=== PATIENT | female | born 1930 | race Caucasian/White ===

== ENCOUNTER 2018-02-14 11:44 | Emergency (ER) | payer MEDICARE ==
[~2018-02-14] VITALS: Ht 170.2 cm; Wt 72.0 kg
[~2018-02-14 11:44] MED LIST: ASPI81TA52 PO; DILT240C90 PO; LISI-232 PO; WARF3TAB PO
[2018-02-14 12:01] VITALS: BP 146/88
[2018-02-14] MEDS ORDERED: ACET-3068 PO (13:30)
== END 2018-02-14 14:12 | disposition home or self-care (01) ==
LOC: ER 11:45
DX: S80.02XA Contusion of left knee, initial encounter (principal); S80.01XA Contusion of right knee, initial encounter; I48.91 Unspecified atrial fibrillation; I10 Essential (primary) hypertension; Z98.890 Other specified postprocedural states; Z79.82 Long term (current) use of aspirin; Z79.01 Long term (current) use of anticoagulants; Z79.899 Other long term (current) drug therapy; Z91.018 Allergy to other foods; Z60.2 Problems related to living alone; W01.0XXA Fall on same level from slipping, tripping and stumbling without subsequent striking against object, initial encounter; Y93.89 Activity, other specified; Y92.89 Other specified places as the place of occurrence of the external cause; Y99.8 Other external cause status
CPT/HCPCS: 73564; 99284; A6449